=== PATIENT | female | born 1985 | race Caucasian/White ===

== ENCOUNTER 2017-08-30 11:35 | Inpatient (IN) | payer BC ==
[2017-08-30] MEDS ORDERED: Ondansetron 4 MG Tab.DIS PO PRN (12:12)
[2017-08-30] MEDS ORDERED: Sodium Chloride 0.9% 10 ML Syringe FLUSH PRN (12:12)
[2017-08-30] MEDS ORDERED: Nalbuphine 20 MG/1 ML Amp IVPUSH PRN (12:12)
[2017-08-30] MEDS ORDERED: Oxytocin/Lactated Ringers 10 UNIT/1,000 ML BAG IV SCH ×2 (12:15)
[2017-08-30] MEDS: Lactated Ringers 1,000 ML IV SCH ×3 (12:44→17:57)
--- NOTE | 2017-08-30 13:38 | PCM.LDHP ---
L&D History of Present Illness - General Date of Service: 08/30/17 Admit Problem/Dx: Patient Status Order with Admit Dx/Problem 08/30/17 12:12 Patient Status [ADT] Routine Admission Diagnosis/Problem Admission Diagnosis/Problem Source of Information: Patient History Limitations: Reports: No Limitations - History of Present Illness Introduction:: He 2-year-old (ETP x2) SALONI 08/30/17 at 40 weeks 0 days estimated gestational age complains of leaking fluid since 1900 hrs. last evening started having contractions approximate 4 AM this morning presented to labor and delivery at approximately noon cervix at that time 3 cm dilated 80% effaced now 4 cm dilated 80% effaced and amniotomy of for bag performed at 1330 hrs. clear fluid soft cervix vertex -1 and mid position patient and aware that Dr. Gustafson will take over called at 1700 hours. Group B strep negative patient lives an [place] blood type A positive antibody screen negative initial hemoglobin hematocrit on 01/28/1713.7 and 40.2 platelets 339,000 Pap smear negative rubella titer nonimmune (needs MMR after delivery) VDRL nonreactive urine culture mixed kwasi hepatitis B surface antigen and HIV negative Chlamydia and GC probe negative on 05/29/17 hemoglobin hematocrit 11.9/35.1 with platelets 279,001 hour OB glucose screen 142 3 hour glucose tolerance test fasting 86 1 hour 175 2 are 156 3 hour 68. Group B strep negative on 08/01/17. Plan labor and delivery. Location, : Reports: Abdomen, Lower back Quality: Reports: Ache, Dull, Pressure Severity: Mild (4) Pain Score: 4 Improves with: Reports: None Worsens with: Reports: None Associated Symptoms: Reports: N - Related Data Allergies/Adverse Reactions: Allergies Allergy/AdvReac Type Severity Reaction Status Date / Time No Known Allergies Allergy Verified 08/30/17 11:46 Past Medical History : 3 Para: 0 (0020) LMP (Approximate): H&P Review of Systems - Review of Systems: Review Of Systems: See Below General: Reports: No Symptoms HEENT: Reports: No Symptoms Pulmonary: Reports: No Symptoms Cardiovascular: Reports: No Symptoms Gastrointestinal: Reports: No Symptoms Genitourinary: Reports: No Symptoms Musculoskeletal: Reports: No Symptoms Skin: Reports: No Symptoms Psychiatric: Reports: No Symptoms Neurological: Reports: No Symptoms Hematologic/Lymphatic: Reports: No Symptoms Immunologic: Reports: No Symptoms L&D Exam - Exam Exam: See Below - Vital Signs Weight: 255 lb - OB Specific Fundal Height In cm: 40 Contraction Duration (sec): 60 Contraction Frequency (min): 3-5 Contraction Intensity: Mild to Moderate Movement: Active Heart Tones: Present Heart Tones per Min: 133 Heart Rate (FHR) Variability: Moderate (6-25 bmp) Presentation: Vertex - Potter Score Potter Score Cervix Position: Midposition Potter Score Consistency: Soft Potter Score Effacement: >80% Potter Score Dilation: 3-4 cm Potter Score Infant's Station: -1 ,0 Potter Score Total: 10 - Exam General: Alert, Oriented HEENT: Conjunctiva Clear, Mucosa Moist & [place], PERRLA Neck: Supple, Trachea Midline Lungs: Clear to Auscultation, Normal Respiratory Effort Cardiovascular: Regular Rate, Regular Rhythm GI/Abdominal Exam: Normal Bowel Sounds, Soft, Non-Tender, No Organomegaly, No Distention, No Abnormal Bruit, No Mass, Pelvis Stable Genitourinary: Normal external exam, Normal bimanual exam, Normal speculum exam Back Exam: Normal Inspection, Full Range of Motion Extremities: Normal Inspection, Normal Range of Motion, Non-Tender, No Pedal Edema, Normal Capillary Refill Skin: Warm, Dry, Intact Neurological: Reflexes Equal Bilateral Psychiatric: Alert, Normal Affect, Normal Mood - Patient Data Lab Results Last 24 hrs: Laboratory Results - last 24 hr 08/30/17 Range/Units 12:43 WBC 16.62 H (3.98-10.04) K/mm3 RBC 4.45 (3.98-5.22) M/mm3 Hgb 12.6 (11.2-15.7) gm/L Hct 37.6 (34.1-44.9) % MCV 84.5 (79.4-94.8) fl MCH 28.3 (25.6-32.2) pg MCHC 33.5 (32.2-35.5) g/dl RDW Std Deviation 40.4 (36.4-46.3) fL Plt Count 251 (182-369) K/mm3 MPV 9.7 (9.4-12.3) fl Neut % (Auto) 81.1 H (34.0-71.1) % Lymph % (Auto) 13.0 L (19.3-51.7) % [place] % (Auto) 5.0 (4.7-12.5) % Eos % (Auto) 0.4 L (0.7-5.8) Baso % (Auto) 0.1 (0.1-1.2) % Neut # (Auto) 13.48 H (1.56-6.13) K/mm3 Lymph # (Auto) 2.16 (1.18-3.74) K/mm3 [place] # (Auto) 0.83 H (0.24-0.36) K/mm3 Eos # (Auto) 0.06 (0.04-0.36) K/mm3 Baso # (Auto) 0.02 (0.01-0.08) K/mm3 Result Diagrams: 08/30/17 12:43 - Problem List (1) Premature rupture of membranes SNOMED Code(s): 46161618 ICD Code: O42.90 - KELLI ROM, 7TH0 BETW RUPT & ONST LABR, UNSP WEEKS OF GEST Status: Acute Current Visit: Yes Qualifiers: PROM onset of labor timing: onset of labor within 24 hours of rupture PROM gestational age: full term Qualified Code(s): O42.02 - Full-term premature rupture of membranes, onset of labor within 24 hours of rupture (2) 40 weeks gestation of SNOMED Code(s): 92656574 ICD Code: Z3A.40 - 40 WEEKS GESTATION OF Status: Acute Current Visit: Yes Problem List Initiated/Reviewed/Updated: No Orders Last 24hrs: Active Orders 24 hr Category Date Time Status Patient Status [ADT] Routine ADT 08/30/17 12:12 Active Activity as Tolerated [RC] PFP Care 08/30/17 12:12 Active Communication Order [RC] ASDIRECTED Care 08/30/17 12:12 Active Heart Tones [RC] ASDIRECTED Care 08/30/17 12:13 Active Notify Provider [RC] PFP Care 08/30/17 12:12 Active Notify Provider [RC] PRN Care 08/30/17 12:12 Active Peripheral IV Care [RC] . DIRECTED Care 08/30/17 12:13 Active Pump Management, Intrathecal [RC] ASDIRECTED Care 08/30/17 12:13 Active Vital Signs [RC] PER UNIT ROUTINE Care 08/30/17 12:12 Active Regular Diet [DIET] Diet 08/30/17 Lunch Active TYPE AND SCREEN [BBK] Stat Lab 08/30/17 12:43 Received Lactated Ringers [Ringers, Lactated] 1,000 ml Med 08/30/17 12:15 Active IV ASDIRECTED Nalbuphine [Nubain] Med 08/30/17 12:12 Active 10 mg IVPUSH Q2H PRN Ondansetron [Zofran ODT] Med 08/30/17 12:12 Active 4 mg PO Q4H PRN Oxytocin/Lactated Ringers [Pitocin in LR 10 Units/1,000 Med 08/30/17 12:15 Active ML] 10 unit in 1,000 ml IV .CONTINUOUS Oxytocin/Lactated Ringers [Pitocin in LR 10 Units/1,000 Med 08/30/17 12:15 Active ML] 10 unit in 1,000 ml IV TITRATE Sodium Chloride 0.9% [Saline Flush] Med 08/30/17 12:12 Active 10 ml FLUSH ASDIRECTED PRN Electronic Heart Tones Ext w TOCO [WOMSER] Oth 08/30/17 12:12 Ordered Routine Electronic Heart Tones Internal [WOMSER] Per Unit Oth 08/30/17 12:12 Ordered Routine Peripheral IV Insertion Adult [OM.PC] Routine Oth 08/30/17 12:12 Ordered Resuscitation Status Routine Resus Stat 08/30/17 12:12 Ordered Medication Orders Lactated Ringer's (Ringers, Lactated) 1,000 mls @ 100 mls/hr IV ASDIRECTED ALIRIO Last Admin: 08/30/17 12:44 Dose: 100 mls/hr Oxytocin/Lactated Ringer's (Pitocin In Lr 10 Units/1,000 Ml) 10 unit in 1,000 mls @ 12 mls/hr IV TITRATE ALIRIO; 2 MUNITS/MIN PRN Reason: Protocol Last Admin: 08/30/17 12:44 Dose: 2 munits/min, 12 mls/hr Oxytocin/Lactated Ringer's (Pitocin In Lr 10 Units/1,000 Ml) 10 unit in 1,000 mls @ 500 mls/hr IV .CONTINUOUS ALIRIO Nalbuphine HCl (Nubain) 10 mg IVPUSH Q2H PRN PRN Reason: Pain (moderate 4-6) Ondansetron HCl (Zofran Odt) 4 mg PO Q4H PRN PRN Reason: Nausea/Vomiting Sodium Chloride (Saline Flush) 10 ml FLUSH ASDIRECTED PRN PRN Reason: Keep Vein Open Assessment/Plan Comment:: Plan labor and delivery Dr. Gustafson assumes care at 1700 hrs. today.
[2017-08-30] MEDS ORDERED: fentaNYL 100 MCG/2 ML SDV EPIDUR PRN (15:56)
[2017-08-30] MEDS ORDERED: diphenhydrAMINE 50 MG/ML SDV IVPUSH PRN (15:56)
[2017-08-30] MEDS ORDERED: ePHEDrine 50 MG/ML SDV IVPUSH PRN (15:56)
[2017-08-30] MEDS ORDERED: fentaNYL 100 MCG/2 ML SDV ONE (16:05)
[2017-08-30] MEDS: Bupivacaine/fentaNYL/NS 100 ML Bag EPIDUR SCH ×2 (16:20→21:24)
--- NOTE | 2017-08-30 16:34 | PCM.PREANE ---
Preanesthetic Assessment - Anesthesia/Transfusion/Family Hx Anesthesia History: Prior Anesthesia Without Reaction Family History of Anesthesia Reaction: No Transfusion History: No Prior Transfusion(s) - Review of Systems General: No Symptoms Pulmonary: No Symptoms Cardiovascular: No Symptoms Gastrointestinal: No Symptoms Neurological: No Symptoms - Physical Assessment Pulse: 98 O2 Sat by Pulse Oximetry: 97 Respiratory Rate: 22 Blood Pressure: 126/54 Temperature: 36.3 C Height: 1.68 m Weight: 115.666 kg ASA Class: 2 Mental Status: Alert & Oriented x3 Airway Class: Mallampati = 1 Dentition: Reports: Normal Dentition Thyro-Mental Finger Breadths: 3 Mouth Opening Finger Breadths: 3 ROM/Head Extension: Full Lungs: Clear to Auscultation, Normal Respiratory Effort Cardiovascular: Regular Rate, Regular Rhythm - Lab Values: Laboratory Last Values WBC 16.62 K/mm3 (3.98-10.04) H 08/30/17 12:43 RBC 4.45 M/mm3 (3.98-5.22) 08/30/17 12:43 Hgb 12.6 gm/L (11.2-15.7) 08/30/17 12:43 Hct 37.6 % (34.1-44.9) 08/30/17 12:43 MCV 84.5 fl (79.4-94.8) 08/30/17 12:43 MCH 28.3 pg (25.6-32.2) 08/30/17 12:43 MCHC 33.5 g/dl (32.2-35.5) 08/30/17 12:43 RDW Std Deviation 40.4 fL (36.4-46.3) 08/30/17 12:43 Plt Count 251 K/mm3 (182-369) 08/30/17 12:43 MPV 9.7 fl (9.4-12.3) 08/30/17 12:43 Neut % (Auto) 81.1 % (34.0-71.1) H 08/30/17 12:43 Lymph % (Auto) 13.0 % (19.3-51.7) L 08/30/17 12:43 [place] % (Auto) 5.0 % (4.7-12.5) 08/30/17 12:43 Eos % (Auto) 0.4 (0.7-5.8) L 08/30/17 12:43 Baso % (Auto) 0.1 % (0.1-1.2) 08/30/17 12:43 Neut # (Auto) 13.48 K/mm3 (1.56-6.13) H 08/30/17 12:43 Lymph # (Auto) 2.16 K/mm3 (1.18-3.74) 08/30/17 12:43 [place] # (Auto) 0.83 K/mm3 (0.24-0.36) H 08/30/17 12:43 Eos # (Auto) 0.06 K/mm3 (0.04-0.36) 08/30/17 12:43 Baso # (Auto) 0.02 K/mm3 (0.01-0.08) 08/30/17 12:43 Blood Type A POSITIVE 08/30/17 12:43 Gel Antibody Screen Negative 08/30/17 12:43 - Allergies Allergies/Adverse Reactions: Allergies Allergy/AdvReac Type Severity Reaction Status Date / Time No Known Allergies Allergy Verified 08/30/17 11:46 - Acknowledgements Anesthesia Type Planned: Epidural Pt an Appropriate Candidate for the Planned Anesthesia: Yes Alternatives and Risks of Anesthesia Discussed w Pt/Guardian: Yes Pt/Guardian Understands and Agrees with Anesthesia Plan: Yes PreAnesthesia Questionnaire Gastrointestinal History: Reports: [employer] 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 - SUBSTANCE USE Smoking Status *Q: Former Smoker Tobacco Use Within Last Twelve Months: No Recreational Drug Use History: No - CURRENT (IN HOUSE) MEDS Current Meds: Current Medications Diphenhydramine HCl (Benadryl) 25 mg IVPUSH Q6H PRN PRN Reason: Itching Ephedrine Sulfate (Ephedrine Sulfate) 5 mg IVPUSH ASDIRECTED PRN PRN Reason: HYPOTENTSION Fentanyl (Sublimaze) 100 mcg EPIDUR Q3H PRN PRN Reason: PAIN Last Admin: 08/30/17 16:19 Dose: 100 mcg Fentanyl/Bupivacaine HCl (Fentanyl/Bupivacaine/Ns 2 Mcg-0.125% 100 Ml) 100 ml EPIDUR ASDIRECTED ALIRIO Last Admin: 08/30/17 16:20 Dose: 100 ml Lactated Ringer's (Ringers, Lactated) 1,000 mls @ 100 mls/hr IV ASDIRECTED ALIRIO Last Infusion: 08/30/17 15:23 Dose: 999 mls/hr Oxytocin/Lactated Ringer's (Pitocin In Lr 10 Units/1,000 Ml) 10 unit in 1,000 mls @ 12 mls/hr IV TITRATE ALIRIO; 2 MUNITS/MIN PRN Reason: Protocol Last Titration: 08/30/17 15:47 Dose: 4 munits/min, 24 mls/hr Oxytocin/Lactated Ringer's (Pitocin In Lr 10 Units/1,000 Ml) 10 unit in 1,000 mls @ 500 mls/hr IV .CONTINUOUS ALIRIO Nalbuphine HCl (Nubain) 10 mg IVPUSH Q2H PRN PRN Reason: Pain (moderate 4-6) Ondansetron HCl (Zofran Odt) 4 mg PO Q4H PRN PRN Reason: Nausea/Vomiting Sodium Chloride (Saline Flush) 10 ml FLUSH ASDIRECTED PRN PRN Reason: Keep Vein Open Discontinued Medications Fentanyl (Sublimaze) Confirm Administered Dose 100 mcg .ROUTE .[facility]-MED ONE Stop: 08/30/17 16:06
--- NOTE | 2017-08-30 19:31 | PCM.PNLD ---
Labor Progress Note - VS & Meds Vital Signs: Last Vital Signs Temp 36.3 C 08/30/17 16:34 Pulse 98 08/30/17 16:34 Resp 22 H 08/30/17 16:34 BP 126/54 L 08/30/17 16:34 Pulse Ox 97 08/30/17 16:34 Active Medications: Current Medications Diphenhydramine HCl (Benadryl) 25 mg IVPUSH Q6H PRN PRN Reason: Itching Ephedrine Sulfate (Ephedrine Sulfate) 5 mg IVPUSH ASDIRECTED PRN PRN Reason: HYPOTENTSION Fentanyl (Sublimaze) 100 mcg EPIDUR Q3H PRN PRN Reason: PAIN Last Admin: 08/30/17 16:19 Dose: 100 mcg Fentanyl/Bupivacaine HCl (Fentanyl/Bupivacaine/Ns 2 Mcg-0.125% 100 Ml) 100 ml EPIDUR ASDIRECTED ALIRIO Last Admin: 08/30/17 16:20 Dose: 100 ml Lactated Ringer's (Ringers, Lactated) 1,000 mls @ 100 mls/hr IV ASDIRECTED ALIRIO Last Admin: 08/30/17 17:57 Dose: 999 mls/hr Oxytocin/Lactated Ringer's (Pitocin In Lr 10 Units/1,000 Ml) 10 unit in 1,000 mls @ 12 mls/hr IV TITRATE ALIRIO; 2 MUNITS/MIN PRN Reason: Protocol Last Titration: 08/30/17 17:54 Dose: 8 munits/min, 48 mls/hr Oxytocin/Lactated Ringer's (Pitocin In Lr 10 Units/1,000 Ml) 10 unit in 1,000 mls @ 500 mls/hr IV .CONTINUOUS ALIRIO Nalbuphine HCl (Nubain) 10 mg IVPUSH Q2H PRN PRN Reason: Pain (moderate 4-6) Ondansetron HCl (Zofran Odt) 4 mg PO Q4H PRN PRN Reason: Nausea/Vomiting Sodium Chloride (Saline Flush) 10 ml FLUSH ASDIRECTED PRN PRN Reason: Keep Vein Open Discontinued Medications Fentanyl (Sublimaze) Confirm Administered Dose 100 mcg .ROUTE .STK-MED ONE Stop: 08/30/17 16:06 - Uterine Contractions Uterine Monitoring Mode: External [place] Contraction Frequency (min): 3-5 Contraction Duration (sec): 60 Contraction Intensity: Moderate to Strong - Monitoring Monitor Mode: External Ultrasound Heart Rate (FHR) Baseline: 140 Heart Rate (FHR) Variability: Moderate (6-25 bmp) Accelerations: Present, 15x15 Decelerations: Early, Late (rare) Strip Review: Category II - Vaginal Exam Dilation (cm): 9 Effacement (Percent): 80 Station: 1 Cervical Position: Anterior - Labor Progress (Free Text) Labor Progress: Doing well. On pitocin of 8. Will reassess in another 1-1.5 hours. Will begin pushing once complete.
--- NOTE | 2017-08-30 23:26 | PCM.SN ---
- Free Text/Narrative Note: In room at 2320 decrease epidural gtt from 10ml/hr to 7ml/hr VSS out room at 2328
--- NOTE | 2017-08-31 02:41 | PCM.DEL ---
L & D Note - Delivery Note Labor: Augmented by Oxytocin Delivery Outcome: Livebirth Delivery Method: Spontaneous Vaginal Delivery-Single Infant Delivery Mode: Vacuum Extraction Presentation: Right Occiput Posterior (ROP) Nuchal Cord: Present (x2), Reduced Anesthesia Type: Epidural Amniotic Fluid Description: Clear Episiotomy Type: None Laceration: None Placenta: Intact, Spontaneous Cord: 3 Vessels Estimated Blood Loss: 350 : Suctioned, Bulb Syringe, Cathether, Stimulated, Warmed, [place] Used, Warmer Used Score 1 min: 7 Score 5 min: 9 Delivery Comments (Free Text/Narrative):: The patient was pushing in the dorsal lithotomy position. After approximately 4 hours of pushing patient was exhausted and requested assisted second stage. scalp visible on the perineum even without pushing. The mushroom cup was placed without difficulty with care to avoid the vaginal side boggs. Subsequent vacuum assisted vaginal delivery with pushing. Total pressure applied 550 mm Hg. Total pop offs 0. Total time of vacuum applied less than 60 seconds and delivery occurred over 1 contraction. Suction was removed following delivery of the head. Head delivered from almost straight OP presentation. Nuchal cord x 2 was reduced without difficulty. The remainder of the infant delivered without difficulty. The umbilical cord was clamped and cut and the infant taken to warmer for inspection. Inspection of the perineum following delivery with no lacerations Vacuum Extractor Progress Note - Alternative Labor Strategies Considered Alternative Labor Strategies Considered:: Reports: Yes Strategies Considered:: Reports: Position Changes Used to Facilitate Rotation & Descent, Empty Bladder Indications Considered:: Reports: Yes Indications:: Reports: Shortening of 2nd Stage for Maternal Benefit Time Out:: Reports: Yes - Patient Prepared Patient Prepared:: Reports: Yes Informed Consent:: Reports: Verbal Risks: Reports: Yes Risks Include:: Reports: Laceration, Shoulder Dystocia, Maternal Injury Anesthesia/Analgesia Adequate:: Reports: Yes - Probability of Success High Probability of Success:: Reports: Yes Weight Estimated:: Reports: LGA Patient Diabetic:: Reports: No Pelvis Adequate:: Reports: Yes Asynclitic:: Reports: No - Application Time Maximum Application Time & Number of Pop-Offs Predetermined:: Reports: Yes Type of Vacuum Used:: Reports: Cup: Mushroom type Vacuum Extraction: Successful - Exit Strategy Exit strategy available:: Reports: Yes and resuscitation teams readily available:: Reports: Yes - Patient Data Vitals - Most Recent: Last Vital Signs Temp 36.3 C 08/30/17 16:34 Pulse 98 08/30/17 16:34 Resp 22 H 08/30/17 16:34 BP 126/54 L 08/30/17 16:34 Pulse Ox 97 08/30/17 16:34 Weight - Most Recent: 115.666 kg I&O - Last 24 Hours: Intake & Output 08/30/17 08/30/17 08/31/17 14:59 22:59 06:59 Intake Total 1999 Balance 1999 Lab Results Last 24 Hours: Laboratory Results - last 24 hr 08/30/17 08/30/17 Range/Units 12:43 12:43 WBC 16.62 H (3.98-10.04) K/mm3 RBC 4.45 (3.98-5.22) M/mm3 Hgb 12.6 (11.2-15.7) gm/L Hct 37.6 (34.1-44.9) % MCV 84.5 (79.4-94.8) fl MCH 28.3 (25.6-32.2) pg MCHC 33.5 (32.2-35.5) g/dl RDW Std Deviation 40.4 (36.4-46.3) fL Plt Count 251 (182-369) K/mm3 MPV 9.7 (9.4-12.3) fl Neut % (Auto) 81.1 H (34.0-71.1) % Lymph % (Auto) 13.0 L (19.3-51.7) % [place] % (Auto) 5.0 (4.7-12.5) % Eos % (Auto) 0.4 L (0.7-5.8) Baso % (Auto) 0.1 (0.1-1.2) % Neut # (Auto) 13.48 H (1.56-6.13) K/mm3 Lymph # (Auto) 2.16 (1.18-3.74) K/mm3 [place] # (Auto) 0.83 H (0.24-0.36) K/mm3 Eos # (Auto) 0.06 (0.04-0.36) K/mm3 Baso # (Auto) 0.02 (0.01-0.08) K/mm3 Blood Type A POSITIVE Gel Antibody Screen Negative Med Orders - Current: Current Medications Diphenhydramine HCl (Benadryl) 25 mg IVPUSH Q6H PRN PRN Reason: Itching Ephedrine Sulfate (Ephedrine Sulfate) 5 mg IVPUSH ASDIRECTED PRN PRN Reason: HYPOTENTSION Fentanyl (Sublimaze) 100 mcg EPIDUR Q3H PRN PRN Reason: PAIN Last Admin: 08/30/17 16:19 Dose: 100 mcg Fentanyl/Bupivacaine HCl (Fentanyl/Bupivacaine/Ns 2 Mcg-0.125% 100 Ml) 100 ml EPIDUR ASDIRECTED ALIRIO Last Admin: 08/30/17 21:24 Dose: 100 ml Lactated Ringer's (Ringers, Lactated) 1,000 mls @ 100 mls/hr IV ASDIRECTED ALIRIO Last Infusion: 08/30/17 19:30 Dose: Infused Oxytocin/Lactated Ringer's (Pitocin In Lr 10 Units/1,000 Ml) 10 unit in 1,000 mls @ 12 mls/hr IV TITRATE ALIRIO; 2 MUNITS/MIN PRN Reason: Protocol Last Titration: 08/30/17 23:41 Dose: 4 munits/min, 24 mls/hr Oxytocin/Lactated Ringer's (Pitocin In Lr 10 Units/1,000 Ml) 10 unit in 1,000 mls @ 500 mls/hr IV .CONTINUOUS ALIRIO Nalbuphine HCl (Nubain) 10 mg IVPUSH Q2H PRN PRN Reason: Pain (moderate 4-6) Ondansetron HCl (Zofran Odt) 4 mg PO Q4H PRN PRN Reason: Nausea/Vomiting Sodium Chloride (Saline Flush) 10 ml FLUSH ASDIRECTED PRN PRN Reason: Keep Vein Open Discontinued Medications Fentanyl (Sublimaze) Confirm Administered Dose 100 mcg .ROUTE .STK-MED ONE Stop: 08/30/17 16:06 - Problem List & Annotations (1) Status post vacuum-assisted vaginal delivery SNOMED Code(s): 443163610 Code(s): Z87.42 - PERSONAL HISTORY OF OTH DISEASES OF THE FEMALE GENITAL TRACT Status: Acute Current Visit: Yes (2) 40 weeks gestation of SNOMED Code(s): 60615928 Code(s): Z3A.40 - 40 WEEKS GESTATION OF Status: Acute Current Visit: Yes (3) Premature rupture of membranes SNOMED Code(s): 39567768 Code(s): O42.90 - KELLI ROM, 7TH0 BETW RUPT & ONST LABR, UNSP WEEKS OF GEST Status: Acute Current Visit: Yes Qualifiers: PROM onset of labor timing: onset of labor within 24 hours of rupture PROM gestational age: full term Qualified Code(s): O42.02 - Full-term premature rupture of membranes, onset of labor within 24 hours of rupture - Problem List Review Problem List Initiated/Reviewed/Updated: Yes - My Orders Last 24 Hours: My Active Orders 08/31/17 02:33 Patient Status Manage Transfer [TRANSFER] Routine - Assessment Assessment:: 32 y/o PPD#0 from [facility] at 40 1/7 wks - Plan Plan:: * Routine cares * Bottle feeding * Discharge home in 1-2 days
[2017-08-31] MEDS ORDERED: Lanolin 100% Cream 7 GM Tube TOP PRN (03:00)
[2017-08-31] MEDS ORDERED: Witch Hazel Medicated Pads 100/Jar TOP PRN (03:00)
[2017-08-31] MEDS ORDERED: Docusate Sodium 100 MG Cap PO PRN (03:00)
[2017-08-31] MEDS ORDERED: Acetaminophen 325 MG Tab PO PRN (03:00)
[2017-08-31] MEDS ORDERED: Benzocaine/Menthol 20%-0.5% Spray 56 GM Canister TOP PRN (03:00)
[2017-08-31] MEDS: Ibuprofen 600 MG Tab PO PRN ×2 (04:30→20:36)
[2017-08-31] MEDS ORDERED: Measles, Mumps & Rubella Vaccine 0.5 ML SDV SUBCUT ONE (22:14)
[2017-08-31] MEDS ORDERED: FLU Vacc TS 2017-18 (65yr UP)/PF 180 MCG/0.5 ML Syringe IM ONE (22:15)
[2017-08-31] MEDS ORDERED: Bupivacaine 0.25% 10 ML SDV ONE (22:22)
[2017-08-31] MEDS ORDERED: FLU Vacc QS 2017-18 (6mos UP)/PF 60 MCG/0.5 ML Syringe IM ONE (22:30)
--- NOTE | 2017-09-01 08:08 | PCM.DCSUM1 ---
Discharge Summary - Discharge Data Discharge Date: 09/01/17 Discharge Disposition: Home, Self-Care 01 Condition: Good - Discharge Diagnosis/Problem(s) (1) Status post vacuum-assisted vaginal delivery SNOMED Code(s): 091125420 ICD Code: Z87.42 - PERSONAL HISTORY OF OTH DISEASES OF THE FEMALE GENITAL TRACT Status: Acute Current Visit: Yes (2) 40 weeks gestation of SNOMED Code(s): 39980380 ICD Code: Z3A.40 - 40 WEEKS GESTATION OF Status: Acute Current Visit: Yes (3) Premature rupture of membranes SNOMED Code(s): 88702976 ICD Code: O42.90 - KELLI ROM, 7TH0 BETW RUPT & ONST LABR, UNSP WEEKS OF GEST Status: Acute Current Visit: Yes Qualifiers: PROM onset of labor timing: onset of labor within 24 hours of rupture PROM gestational age: full term Qualified Code(s): O42.02 - Full-term premature rupture of membranes, onset of labor within 24 hours of rupture - Patient Summary/Data Complications: None Consults: None Recommended Follow-up Testing/Procedures: Follow up with Dr. Drake in 2 weeks Hospital Course: 32 y/o at 40 0/7 wks presented with complaints of PROM. She was started on pitocin for augmenation and progressed well to complete dilation. She did begin pushing and pushed for about 4 hours before requesting VAVD due to exhaustion. See delivery note for full details. she did well and was discharged home on PPD#1 per her request - Patient Instructions Diet: Regular Diet as Tolerated Activity: As Tolerated Activity, Other: Pelvic Rest for 6 weeks Driving: May Drive Today Showering/Bathing: May Shower Showering/Bathing, Other: May Bathe Notify Provider of: Fever, Increased Pain, Swelling and Redness, Drainage, Nausea and/or Vomiting - Discharge Plan Home Medications: Home Meds Docusate Sodium [Colace] 100 mg PO BID PRN cap 08/31/17 [Rx] Ibuprofen [IJD: Ibuprofen] 600 mg PO Q6H PRN tablet 08/31/17 [Rx] Patient Handouts: Vaginal Delivery, Care After Referrals: Kilo Drake MD [Physician] - (2 weeks for check ) - Discharge Summary/Plan Comment DC Time >30 min.: No - Patient Data Vitals - Most Recent: Last Vital Signs Temp 36.2 C 09/01/17 04:31 Pulse 87 09/01/17 04:31 Resp 18 09/01/17 04:31 BP 130/84 09/01/17 04:31 Pulse Ox 98 09/01/17 04:31 Weight - Most Recent: 115.666 kg I&O - Last 24 hours: Intake & Output 08/31/17 09/01/17 09/01/17 22:59 06:59 14:59 Intake Total 300 Balance 300 Med Orders - Current: Current Medications Acetaminophen (Tylenol) 650 mg PO Q4H PRN PRN Reason: mild pain or fever Benzocaine/Menthol (Dermoplast Pain Relief [place]) 0 gm TOP ASDIRECTED PRN PRN Reason: Perineal Comfort Measure Docusate Sodium (Colace) 100 mg PO BID PRN PRN Reason: Constipation Emollient Ointment (Lansinoh Hpa) 0 gm TOP ASDIRECTED PRN PRN Reason: Sore Nipples Ibuprofen (Motrin) 600 mg PO Q6H PRN PRN Reason: Mild pain or fever Last Admin: 08/31/17 20:36 Dose: 600 mg Witch Jaylin (Tucks) 1 pad TOP ASDIRECTED PRN PRN Reason: Hemorrhoid pain Discontinued Medications Diphenhydramine HCl (Benadryl) 25 mg IVPUSH Q6H PRN PRN Reason: Itching Ephedrine Sulfate (Ephedrine Sulfate) 5 mg IVPUSH ASDIRECTED PRN PRN Reason: HYPOTENTSION Fentanyl (Sublimaze) 100 mcg EPIDUR Q3H PRN PRN Reason: PAIN Last Admin: 08/30/17 16:19 Dose: 100 mcg Fentanyl (Sublimaze) Confirm Administered Dose 100 mcg .ROUTE .STK-MED ONE Stop: 08/30/17 16:06 Fentanyl/Bupivacaine HCl (Fentanyl/Bupivacaine/Ns 2 Mcg-0.125% 100 Ml) 100 ml EPIDUR ASDIRECTED [facility] Last Admin: 08/30/17 21:24 Dose: 100 ml Lactated Ringer's (Ringers, Lactated) 1,000 mls @ 100 mls/hr IV ASDIRECTED [facility] Last Infusion: 08/30/17 19:30 Dose: Infused Oxytocin/Lactated Ringer's (Pitocin In Lr 10 Units/1,000 Ml) 10 unit in 1,000 mls @ 12 mls/hr IV TITRATE ALIRIO; 2 MUNITS/MIN PRN Reason: Protocol Last Titration: 08/31/17 02:14 Dose: 500 mls/hr Oxytocin/Lactated Ringer's (Pitocin In Lr 10 Units/1,000 Ml) 10 unit in 1,000 mls @ 500 mls/hr IV .CONTINUOUS ALIRIO Influenza Virus Vaccine (Flulaval Quad [id number]) 60 mcg IM .ONCE ONE Stop: 08/31/17 22:31 Last Admin: 08/31/17 22:56 Dose: 60 mcg Measles/Mumps/Rubella Vaccine Live (M-M-R Ii Vaccine) 0.5 ml SUBCUT .ONCE ONE Stop: 08/31/17 22:15 Last Admin: 08/31/17 22:28 Dose: 0.5 ml Nalbuphine HCl (Nubain) 10 mg IVPUSH Q2H PRN PRN Reason: Pain (moderate 4-6) Ondansetron HCl (Zofran Odt) 4 mg PO Q4H PRN PRN Reason: Nausea/Vomiting Sodium Chloride (Saline Flush) 10 ml FLUSH ASDIRECTED PRN PRN Reason: Keep Vein Open *Q Meaningful Use (DIS) - VTE *Q VTE Criteria *Q: - Stroke *Q Stroke Criteria *Q: - AMI *Q AMI Criteria *Q:
--- NOTE | 2017-09-01 08:08 | PCM.PNPP ---
- General Info Date of Service: 09/01/17 Functional Status: Reports: Pain Controlled, Tolerating Diet, Ambulating, Urinating - Review of Systems General: Reports: No Symptoms Pulmonary: Reports: No Symptoms Cardiovascular: Reports: No Symptoms Gastrointestinal: Reports: No Symptoms Genitourinary: Reports: No Symptoms Musculoskeletal: Reports: No Symptoms Neurological: Reports: No Symptoms - Patient Data Vital Signs - Most Recent: Last Vital Signs Temp 36.2 C 09/01/17 04:31 Pulse 87 09/01/17 04:31 Resp 18 09/01/17 04:31 BP 130/84 09/01/17 04:31 Pulse Ox 98 09/01/17 04:31 Weight - Most Recent: 115.666 kg I&O - Last 24 Hours: Intake & Output 08/31/17 09/01/17 09/01/17 22:59 06:59 14:59 Intake Total 300 Balance 300 Med Orders - Current: Current Medications Acetaminophen (Tylenol) 650 mg PO Q4H PRN PRN Reason: mild pain or fever Benzocaine/Menthol (Dermoplast Pain Relief [place]) 0 gm TOP ASDIRECTED PRN PRN Reason: Perineal Comfort Measure Docusate Sodium (Colace) 100 mg PO BID PRN PRN Reason: Constipation Emollient Ointment (Lansinoh Hpa) 0 gm TOP ASDIRECTED PRN PRN Reason: Sore Nipples Ibuprofen (Motrin) 600 mg PO Q6H PRN PRN Reason: Mild pain or fever Last Admin: 08/31/17 20:36 Dose: 600 mg Witch Jaylin (Tucks) 1 pad TOP ASDIRECTED PRN PRN Reason: Hemorrhoid pain Discontinued Medications Diphenhydramine HCl (Benadryl) 25 mg IVPUSH Q6H PRN PRN Reason: Itching Ephedrine Sulfate (Ephedrine Sulfate) 5 mg IVPUSH ASDIRECTED PRN PRN Reason: HYPOTENTSION Fentanyl (Sublimaze) 100 mcg EPIDUR Q3H PRN PRN Reason: PAIN Last Admin: 08/30/17 16:19 Dose: 100 mcg Fentanyl (Sublimaze) Confirm Administered Dose 100 mcg .ROUTE .STK-MED ONE Stop: 08/30/17 16:06 Fentanyl/Bupivacaine HCl (Fentanyl/Bupivacaine/Ns 2 Mcg-0.125% 100 Ml) 100 ml EPIDUR ASDIRECTED ALIRIO Last Admin: 08/30/17 21:24 Dose: 100 ml Lactated Ringer's (Ringers, Lactated) 1,000 mls @ 100 mls/hr IV ASDIRECTED ALIRIO Last Infusion: 08/30/17 19:30 Dose: Infused Oxytocin/Lactated Ringer's (Pitocin In Lr 10 Units/1,000 Ml) 10 unit in 1,000 mls @ 12 mls/hr IV TITRATE ALIRIO; 2 MUNITS/MIN PRN Reason: Protocol Last Titration: 08/31/17 02:14 Dose: 500 mls/hr Oxytocin/Lactated Ringer's (Pitocin In Lr 10 Units/1,000 Ml) 10 unit in 1,000 mls @ 500 mls/hr IV .CONTINUOUS ALIRIO Influenza Virus Vaccine (Flulaval Quad [id number]) 60 mcg IM .ONCE ONE Stop: 08/31/17 22:31 Last Admin: 08/31/17 22:56 Dose: 60 mcg Measles/Mumps/Rubella Vaccine Live (M-M-R Ii Vaccine) 0.5 ml SUBCUT .ONCE ONE Stop: 08/31/17 22:15 Last Admin: 08/31/17 22:28 Dose: 0.5 ml Nalbuphine HCl (Nubain) 10 mg IVPUSH Q2H PRN PRN Reason: Pain (moderate 4-6) Ondansetron HCl (Zofran Odt) 4 mg PO Q4H PRN PRN Reason: Nausea/Vomiting Sodium Chloride (Saline Flush) 10 ml FLUSH ASDIRECTED PRN PRN Reason: Keep Vein Open - Infant Interaction Disposition, : [place] in Room with Family Infant Interaction: Holding Infant Feeding: Bottle Fed Support Person: - Recovery Exam Fundal Tone: Firm Fundal Level: 1 Fingerbreadths Below Umbilicus Fundal Placement: Midline Lochia Amount: Small Lochia Color: Rubra/Red Perineum Description: Intact, Minimal Bruising/Swelling Bladder Status: Voiding Urinary Elimination: Voided - Exam General: Alert, Oriented, Cooperative GI/Abdominal Exam: Soft, Non-Tender Extremities: Normal Inspection Skin: Warm, Dry, Intact - Problem List & Annotations (1) Status post vacuum-assisted vaginal delivery SNOMED Code(s): 768752379 Code(s): Z87.42 - PERSONAL HISTORY OF OTH DISEASES OF THE FEMALE GENITAL TRACT Status: Acute Current Visit: Yes (2) 40 weeks gestation of SNOMED Code(s): 67998489 Code(s): Z3A.40 - 40 WEEKS GESTATION OF Status: Acute Current Visit: Yes (3) Premature rupture of membranes SNOMED Code(s): 03216963 Code(s): O42.90 - KELLI ROM, 7TH0 BETW RUPT & ONST LABR, UNSP WEEKS OF GEST Status: Acute Current Visit: Yes Qualifiers: PROM onset of labor timing: onset of labor within 24 hours of rupture PROM gestational age: full term Qualified Code(s): O42.02 - Full-term premature rupture of membranes, onset of labor within 24 hours of rupture - Problem List Review Problem List Initiated/Reviewed/Updated: Yes - My Orders Last 24 Hours: My Active Orders 09/01/17 03:00 Heat Therapy [OM.PC] PRN - Assessment Assessment:: 32 y/o PPD#1 from VAVD at 40 1/7 wks - Plan Plan:: * Routine cares * Bottle feeding * Discharge home today
== END 2017-09-01 13:45 | disposition home or self-care (01) | DRG 560 ==
LOC: JD.OBCHECK 11:35 → JD.OB 11:35 → JD.OBCHECK 12:12 → OBSVTOIN 08-31 02:39 → JD.OB 08-31 02:39
PROVIDERS: ADMIT Obstetrics & Gynecology; ATTEND Obstetrics & Gynecology
PROC: 10D07Z6 Extraction of Products of Conception, Vacuum, Via Natural or Artificial Opening (ICD-10-PCS; principal; 2017-08-31)
PROC: 00HU33Z Insertion of Infusion Device into Spinal Canal, Percutaneous Approach (ICD-10-PCS; 2017-08-31)
PROC: 3E0R3BZ Introduction of Anesthetic Agent into Spinal Canal, Percutaneous Approach (ICD-10-PCS; 2017-08-31)
DX: O42.02 Full-term premature rupture of membranes, onset of labor within 24 hours of rupture (principal); O69.81X0 Labor and delivery complicated by cord around neck, without compression, not applicable or unspecified; Z3A.40 40 weeks gestation of pregnancy; Z37.0 Single live birth
CPT/HCPCS: 36415; 51701; 51702; 59409; 85025; 86850; 86900; 86901; 90471; 90686; 90707; A9270-GY; J2590; J3010; J7120

== ENCOUNTER 2020-09-26 07:19 | Inpatient (IN) | payer BC ==
[2020-09-26] MEDS ORDERED: Ondansetron 4 MG/2 ML SDV IVPUSH PRN ×2 (07:20→09:32)
[2020-09-26] MEDS ORDERED: Nalbuphine 10 MG/1 ML Vial IVPUSH PRN (07:20)
[2020-09-26] MEDS ORDERED: Sodium Chloride 0.9% 10 ML Syringe FLUSH PRN (07:20)
--- NOTE | 2020-09-26 07:28 | PCM.LDHP ---
L&D History of Present Illness - General Date of Service: 09/26/20 Admit Problem/Dx: Patient Status Order with Admit Dx/Problem 09/26/20 07:21 Patient Status [ADT] Routine Admission Diagnosis/Problem Admission Diagnosis/Problem Normal labor Source of Information: Patient History Limitations: Reports: No Limitations - History of Present Illness Introduction:: Patient is a 35 y/o at 39 1/7 wks who presents for IOL. Doing well today. No other issues or concerns. 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 Social & Family History - Family History Family Medical History: No Pertinent Family History - Tobacco Use Tobacco Use Status *Q: Former Tobacco User - Caffeine Use Caffeine Use: Reports: Coffee, Soda - Alcohol Use Alcohol Use History: No - Recreational Drug Use Recreational Drug Use: No H&P Review of Systems - Review of Systems: Review Of Systems: See Below General: Reports: No Symptoms Pulmonary: Reports: No Symptoms Cardiovascular: Reports: No Symptoms Gastrointestinal: Reports: No Symptoms Genitourinary: Reports: No Symptoms Musculoskeletal: Reports: No Symptoms Psychiatric: Reports: No Symptoms Neurological: Reports: No Symptoms L&D Exam - Exam Exam: See Below - OB Specific Contraction Intensity: Irritability Movement: Active Heart Tones: Present Heart Tones per Min: 140 Heart Rate (FHR) Variability: Moderate (6-25 bmp) Presentation: Vertex - Potter Score Potter Score Cervix Position: Midposition Potter Score Consistency: Soft Potter Score Effacement: 51-70% Potter Score Dilation: 1-2 cm Potter Score 's Station: -3 Potter Score Total: 6 - Exam General: Alert, Oriented, Cooperative Lungs: Clear to Auscultation, Normal Respiratory Effort Cardiovascular: Regular Rate, Regular Rhythm GI/Abdominal Exam: Soft, Non-Tender Genitourinary: Normal external exam Back Exam: Normal Inspection Extremities: Normal Inspection Skin: Warm, Dry, Intact - Patient Data Result Diagrams: 09/26/20 07:40 - Problem List (1) 39 weeks gestation of SNOMED Code(s): 28186945 ICD Code: Z3A.39 - 39 WEEKS GESTATION OF Status: Acute Current Visit: Yes Problem List Initiated/Reviewed/Updated: Yes Orders Last 24hrs: Active Orders 24 hr Category Date Time Status Patient Status [ADT] Routine ADT 09/26/20 07:21 Ordered Activity as Tolerated [RC] PFP Care 09/26/20 07:21 Ordered Communication Order [RC] ASDIRECTED Care 09/26/20 07:21 Ordered Communication Order [RC] ASDIRECTED Care 09/26/20 07:21 Ordered Communication Order [RC] ASDIRECTED Care 09/26/20 07:21 Ordered Heart Tones [RC] ASDIRECTED Care 09/26/20 07:21 Ordered Non Stress Test [RC] PER UNIT ROUTINE Care 09/26/20 07:21 Ordered Notify Provider [RC] ASDIRECTED Care 09/26/20 07:21 Ordered Notify Provider [RC] PRN Care 09/26/20 07:21 Ordered Peripheral IV Care [RC] . DIRECTED Care 09/26/20 07:21 Ordered Up ad Vanessa [RC] ASDIRECTED Care 09/26/20 07:21 Ordered Vaginal Exam [RC] ASDIRECTED Care 09/26/20 07:21 Ordered Vital Signs [RC] ASDIRECTED Care 09/26/20 07:21 Ordered Regular Diet [DIET] Diet 09/26/20 Breakfast Ordered CBC W/O DIFF,HEMOGRAM [HEME] Routine Lab 09/26/20 07:20 Ordered CORONAVIRUS COVID-19 CHRISTINE [MOLEC] Stat Lab 09/26/20 07:23 Ordered RAPID PLASMA REAGIN,RPR [CHEM] Routine Lab 09/26/20 07:21 Ordered TYPE AND SCREEN [BBK] Routine Lab 09/26/20 07:20 Ordered Lactated Ringers [Ringers, Lactated] 1,000 ml Med 09/26/20 07:30 Ordered IV ASDIRECTED Nalbuphine [Nubain] Med 09/26/20 07:20 Ordered 10 mg IVPUSH Q2H PRN Ondansetron [Zofran] Med 09/26/20 07:20 Ordered 4 mg IVPUSH Q4H PRN Oxytocin/Lactated Ringers [Pitocin in LR 10 Units/1,000 Med 09/26/20 07:30 Ordered ML] 10 unit in 1,000 ml IV .CONTINUOUS Oxytocin/Lactated Ringers [Pitocin in LR 10 Units/1,000 Med 09/26/20 07:30 Ordered ML] 10 unit in 1,000 ml IV TITRATE Sodium Chloride 0.9% [Saline Flush] Med 09/26/20 07:20 Ordered 10 ml FLUSH ASDIRECTED PRN Electronic Heart Tones Ext w TOCO [WOMSER] Oth 09/26/20 07:21 Ordered Routine Electronic Heart Tones Internal [WOMSER] Per Unit Ot 09/26/20 07:21 Ordered Routine Peripheral IV Insertion Adult [OM.PC] Routine Oth 09/26/20 07:21 Ordered Resuscitation Status Routine Resus Stat 09/26/20 07:20 Ordered Assessment/Plan Comment:: * Labs to be done * GBS negative, no need for antibiotics * Pitocin and AROM for IOL * Pain management per patient preference * Anticipate
[2020-09-26] MEDS ORDERED: Oxytocin/Lactated Ringers 10 UNIT/1,000 ML BAG IV SCH ×2 (07:30)
[2020-09-26] MEDS: Lactated Ringers 1,000 ML IV SCH ×4 (08:47→14:58)
[2020-09-26] MEDS ORDERED: fentaNYL 100 MCG/2 ML SDV EPIDUR PRN (09:32)
[2020-09-26] MEDS ORDERED: ePHEDrine 50 MG/ML SDV IVPUSH PRN (09:32)
--- NOTE | 2020-09-26 09:36 | PCM.PREANE ---
Preanesthetic Assessment - Procedure Proposed Procedure: Epidural - Anesthesia/Transfusion/Family Hx Anesthesia History: Prior Anesthesia Without Reaction Family History of Anesthesia Reaction: No Transfusion History: No Prior Transfusion(s) Intubation History: Unknown - Review of Systems General: No Symptoms Pulmonary: No Symptoms (Former smoker: quit: 2013) Cardiovascular: No Symptoms, Palpitations Gastrointestinal: No Symptoms (GERD) Neurological: No Symptoms (History of breast cancer carrier: bilateral mastectomy noted) Other: Reports: Anxiety (panic disorder) - Physical Assessment NPO Status Date: 09/26/20 NPO Status Time: 09:30 Vital Signs: Last Vital Signs Temp 37.1 C 09/26/20 07:41 Pulse 85 09/26/20 07:41 Resp 16 09/26/20 07:41 BP 129/90 09/26/20 07:41 Pulse Ox 98 09/26/20 07:41 Height: 1.68 m Weight: 111.584 kg ASA Class: 2 Mental Status: Alert & Oriented x3 Airway Class: Mallampati = 2 Dentition: Reports: Normal Dentition (bottom permanent retainer), Caries Thyro-Mental Finger Breadths: 3 Mouth Opening Finger Breadths: 3 ROM/Head Extension: Full Lungs: Clear to Auscultation, Normal Respiratory Effort Cardiovascular: Regular Rate, Regular Rhythm, No Murmurs - Lab Values: Laboratory Last Values WBC 10.50 K/mm3 (3.98-10.04) H 09/26/20 07:40 RBC 4.51 M/mm3 (3.98-5.22) 09/26/20 07:40 Hgb 12.4 gm/dl (11.2-15.7) 09/26/20 07:40 Hct 37.5 % (34.1-44.9) 09/26/20 07:40 MCV 83.1 fl (79.4-94.8) 09/26/20 07:40 MCH 27.5 pg (25.6-32.2) 09/26/20 07:40 MCHC 33.1 g/dl (32.2-35.5) 09/26/20 07:40 RDW Std Deviation 41.1 fL (36.4-46.3) 09/26/20 07:40 Plt Count 294 K/mm3 (182-369) 09/26/20 07:40 MPV 10.0 fl (9.4-12.3) 09/26/20 07:40 SARS-CoV-2 RNA (CHRISTINE) Negative (NEGATIVE) 09/26/20 07:40 Blood Type A POSITIVE 09/26/20 07:40 Above labs reviewed and noted and within acceptable ranges to proceed with epidural if desired. 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 - SUBSTANCE USE Tobacco Use Status *Q: Former Tobacco User Tobacco Use Within Last Twelve Months: Cigarettes Recreational Drug Use History: No - HOME MEDS Home Medications: Home Meds Docusate Sodium [Colace] 100 mg PO BID PRN cap 08/31/17 [Rx] 95/Iron Fum/Folic/Dha [ + Dha Combo Pack] 1 each PO DAILY 09/26/20 [History] Sertraline [Zoloft] 100 mg PO BEDTIME 09/26/20 [History] - CURRENT (IN HOUSE) MEDS Current Meds: Current Medications Oxytocin/Lactated Ringer's (Pitocin In Lr 10 Units/1,000 Ml) 10 unit in 1,000 mls @ 12 mls/hr IV TITRATE ALIRIO; Protocol Last Admin: 09/26/20 08:46 Dose: 2 munits/min, 12 mls/hr Documented by: Oxytocin/Lactated Ringer's (Pitocin In Lr 10 Units/1,000 Ml) 10 unit in 1,000 mls @ 500 mls/hr IV .CONTINUOUS ALIRIO Lactated Ringer's (Ringers, Lactated) 1,000 mls @ 40 mls/hr IV ASDIRECTED ALIRIO Last Admin: 09/26/20 08:47 Dose: 40 mls/hr Documented by: Nalbuphine HCl (Nubain) 10 mg IVPUSH Q2H PRN PRN Reason: Pain Ondansetron HCl (Zofran) 4 mg IVPUSH Q4H PRN PRN Reason: Nausea/Vomiting Sodium Chloride (Saline Flush) 10 ml FLUSH ASDIRECTED PRN PRN Reason: Keep Vein Open
[2020-09-26] MEDS ORDERED: Bupivacaine/fentaNYL/NS 100 ML Bag EPIDUR SCH (09:45)
[2020-09-26] MEDS ORDERED: Bupivacaine 0.25% 10 ML SDV ONE (11:00)
--- NOTE | 2020-09-26 12:17 | PCM.PNLD ---
Labor Progress Note - VS & Meds Vital Signs: Last Vital Signs Temp 37.1 C 09/26/20 07:41 Pulse 85 09/26/20 07:41 Resp 16 09/26/20 07:41 BP 129/90 09/26/20 07:41 Pulse Ox 98 09/26/20 07:41 Active Medications: Current Medications Ephedrine Sulfate (Ephedrine Sulfate) 5 mg IVPUSH ASDIRECTED PRN PRN Reason: Hypotension Fentanyl (Sublimaze) 100 mcg EPIDUR Q3H PRN PRN Reason: Pain Fentanyl/Bupivacaine HCl (Fentanyl/Bupivacaine/Ns 2 Mcg-0.125% 100 Ml) 100 ml E PIDUR ASDIRECTED ALIRIO Oxytocin/Lactated Ringer's (Pitocin In Lr 10 Units/1,000 Ml) 10 unit in 1,000 mls @ 12 mls/hr IV TITRATE ALIRIO; Protocol Last Titration: 09/26/20 11:40 Dose: 6 munits/min, 36 mls/hr Documented by: Oxytocin/Lactated Ringer's (Pitocin In Lr 10 Units/1,000 Ml) 10 unit in 1,000 mls @ 500 mls/hr IV .CONTINUOUS ALIRIO Lactated Ringer's (Ringers, Lactated) 1,000 mls @ 40 mls/hr IV ASDIRECTED ALIRIO Last Admin: 09/26/20 08:47 Dose: 40 mls/hr Documented by: Nalbuphine HCl (Nubain) 10 mg IVPUSH Q2H PRN PRN Reason: Pain Ondansetron HCl (Zofran) 4 mg IVPUSH Q4H PRN PRN Reason: Nausea/Vomiting Ondansetron HCl (Zofran) 4 mg IVPUSH ONETIME PRN PRN Reason: Nausea/Vomiting Sodium Chloride (Saline Flush) 10 ml FLUSH ASDIRECTED PRN PRN Reason: Keep Vein Open Discontinued Medications Miscellaneous Medication (Phenylephrine 1 Mg/10 Ml-Ns) 0 mg IVPUSH ONETIME ONE Stop: 09/26/20 09:33 - Uterine Contractions Uterine Monitoring Mode: External Lismore Contraction Intensity: Mild to Moderate Uterine Resting Tone: Soft - Monitoring Monitor Mode: External Ultrasound Heart Rate (FHR) Baseline: 125 Heart Rate (FHR) Variability: Moderate (6-25 bmp) Accelerations: Present, 15x15 Decelerations: None Strip Review: Category I - Vaginal Exam Dilation (cm): 4 Effacement (Percent): 50 Station: -2 Cervical Position: Midposition - Labor Progress (Free Text) Labor Progress: Doing well. Pitocin at 6. AROM performed. Continue present management
--- NOTE | 2020-09-26 15:45 | PCM.DEL ---
L & D Note - General Info Date of Service: 09/26/20 - Delivery Note Labor: Induced by ARM, Induced by Oxytocin Delivery Outcome: Livebirth Infant Delivery Method: Spontaneous Vaginal Delivery-Single Infant Delivery Mode: Spontaneous Presentation: Left Occiput Anterior (MARVIN) Nuchal Cord: None Anesthesia Type: Epidural Amniotic Fluid Description: Clear Episiotomy Type: None Laceration: None Placenta: Intact, Spontaneous Cord: 3 Vessels Estimated Blood Loss: 350 Resuscitation Needed: Yes [place]: Bulb Syringe, Stimulated, Warmed, Temperance Used, Warmer Used Delivery Comments (Free Text/Narrative):: Patient found to be complete and began pushing. With maternal pushing effort head delivered from an MARVIN presentation. No nuchal cord present. With gentle downward traction the shoulders and body delivered. placed on maternal abdomen. Cord clamped and cut. Cord blood obtained. Placenta allowed time to separate and expelled intact. Inspection of the perineum showed no lacerations - General Info Date of Service: 09/26/20 - Patient Data Vitals - Most Recent: Last Vital Signs Temp 37.1 C 09/26/20 07:41 Pulse 85 09/26/20 07:41 Resp 16 09/26/20 07:41 BP 129/90 09/26/20 07:41 Pulse Ox 98 09/26/20 07:41 Weight - Most Recent: 111.584 kg - Problem List & Annotations (1) 39 weeks gestation of SNOMED Code(s): 28595488 Code(s): Z3A.39 - 39 WEEKS GESTATION OF Status: Acute Current Visit: Yes (2) Vaginal delivery SNOMED Code(s): 318196800 Code(s): O80 - ENCOUNTER FOR FULL-TERM UNCOMPLICATED DELIVERY Status: Acute Current Visit: Yes - Problem List Review Problem List Initiated/Reviewed/Updated: Yes - My Orders Last 24 Hours: My Active Orders 09/26/20 Breakfast Regular Diet [DIET] 09/26/20 07:20 Nalbuphine [Nubain] 10 mg IVPUSH Q2H PRN Ondansetron [Zofran] 4 mg IVPUSH Q4H PRN Sodium Chloride 0.9% [Saline Flush] 10 ml FLUSH ASDIRECTED PRN Resuscitation Status Routine 09/26/20 07:21 Patient Status [ADT] Routine Activity as Tolerated [RC] PFP Communication Order [RC] ASDIRECTED Communication Order [RC] ASDIRECTED Communication Order [RC] ASDIRECTED Heart Tones [RC] ASDIRECTED Non Stress Test [RC] PER UNIT ROUTINE Notify Provider [RC] ASDIRECTED Notify Provider [RC] PRN Peripheral IV Care [RC] . DIRECTED Up ad Vanessa [RC] ASDIRECTED Vaginal Exam [RC] ASDIRECTED Vital Signs [RC] ASDIRECTED Electronic Heart Tones Ext w TOCO [WOMSER] Routine Electronic Heart Tones Internal [WOMSER] Per Unit Routine Peripheral IV Insertion Adult [OM.PC] Routine 09/26/20 07:30 Lactated Ringers [Ringers, Lactated] 1,000 ml IV ASDIRECTED Oxytocin/Lactated Ringers [Pitocin in LR 10 Units/1,000 ML] 10 unit in 1,000 ml IV .CONTINUOUS Oxytocin/Lactated Ringers [Pitocin in LR 10 Units/1,000 ML] 10 unit in 1,000 ml IV TITRATE 09/26/20 07:40 RAPID PLASMA REAGIN,RPR [CHEM] Routine - Assessment Assessment:: PPD#0 - Plan Plan:: * Routine cares * Breast feeding * Discharge home in 1-2 days
[2020-09-26] MEDS ORDERED: Docusate Sodium 100 MG Cap PO PRN (16:35)
[2020-09-26] MEDS ORDERED: Benzocaine/Menthol 20%-0.5% Spray 56 GM Canister TOP PRN (16:35)
[2020-09-26] MEDS ORDERED: Witch Hazel Medicated Pads 40/Jar TOP PRN (16:35)
[2020-09-26] MEDS ORDERED: Acetaminophen 325 MG Tab PO PRN (16:35)
[2020-09-26] MEDS: Ibuprofen 600 MG Tab PO PRN (17:54)
--- NOTE | 2020-09-27 07:37 | PCM.PNPP ---
- General Info Date of Service: 09/27/20 Functional Status: Reports: Pain Controlled, Tolerating Diet, Ambulating, Urinating - Review of Systems General: Reports: No Symptoms Pulmonary: Reports: No Symptoms Cardiovascular: Reports: No Symptoms Gastrointestinal: Reports: No Symptoms Genitourinary: Reports: No Symptoms Musculoskeletal: Reports: No Symptoms Neurological: Reports: No Symptoms - Patient Data Vital Signs - Most Recent: Last Vital Signs Temp 36.6 C 09/27/20 03:22 Pulse 77 09/27/20 03:22 Resp 16 09/26/20 20:29 BP 123/88 09/27/20 03:22 Pulse Ox 98 09/27/20 03:22 Weight - Most Recent: 111.584 kg Lab Results - Last 24 Hours: Laboratory Results - last 24 hr 09/26/20 09/26/20 09/26/20 Range/Units 07:40 07:40 07:40 WBC 10.50 H (3.98-10.04) K/mm3 RBC 4.51 (3.98-5.22) M/mm3 Hgb 12.4 (11.2-15.7) gm/dl Hct 37.5 (34.1-44.9) % MCV 83.1 (79.4-94.8) fl MCH 27.5 (25.6-32.2) pg MCHC 33.1 (32.2-35.5) g/dl RDW Std Deviation 41.1 (36.4-46.3) fL Plt Count 294 (182-369) K/mm3 MPV 10.0 (9.4-12.3) fl RPR Non-reactive (NONREACTIVE) SARS-CoV-2 RNA (CHRISTINE) (NEGATIVE) Blood Type A POSITIVE Gel Antibody Screen Negative 09/26/20 Range/Units 07:40 WBC (3.98-10.04) K/mm3 RBC (3.98-5.22) M/mm3 Hgb (11.2-15.7) gm/dl Hct (34.1-44.9) % MCV (79.4-94.8) fl MCH (25.6-32.2) pg MCHC (32.2-35.5) g/dl RDW Std Deviation (36.4-46.3) fL Plt Count (182-369) K/mm3 MPV (9.4-12.3) fl RPR (NONREACTIVE) SARS-CoV-2 RNA (CHRISTINE) Negative (NEGATIVE) Blood Type Gel Antibody Screen Med Orders - Current: Current Medications Acetaminophen (Tylenol) 650 mg PO Q4H PRN PRN Reason: mild pain or fever Benzocaine/Menthol (Dermoplast Pain Relief [place]) 0 gm TOP ASDIRECTED PRN PRN Reason: Perineal Comfort Measure Last Admin: 09/26/20 17:55 Dose: 1 applic Documented by: Docusate Sodium (Colace) 100 mg PO BID PRN PRN Reason: Constipation Last Admin: 09/26/20 17:54 Dose: 100 mg Documented by: Ibuprofen (Motrin) 600 mg PO Q6H PRN PRN Reason: Mild pain or fever Last Admin: 09/26/20 17:54 Dose: 600 mg Documented by: Heidy Mosqueda (Terackjames) 1 pad TOP ASDIRECTED PRN PRN Reason: Perineal Comfort Measure Last Admin: 09/26/20 17:55 Dose: 1 applic Documented by: Discontinued Medications Ephedrine Sulfate (Ephedrine Sulfate) 5 mg IVPUSH ASDIRECTED PRN PRN Reason: Hypotension Fentanyl (Sublimaze) 100 mcg EPIDUR Q3H PRN PRN Reason: Pain Last Admin: 09/26/20 12:36 Dose: 100 mcg Documented by: Fentanyl/Bupivacaine HCl (Fentanyl/Bupivacaine/Ns 2 Mcg-0.125% 100 Ml) 100 ml EPIDUR ASDIRECTED ALIRIO Last Admin: 09/26/20 12:37 Dose: 100 ml Documented by: Oxytocin/Lactated Ringer's (Pitocin In Lr 10 Units/1,000 Ml) 10 unit in 1,000 mls @ 12 mls/hr IV TITRATE ALIRIO; Protocol Last Titration: 09/26/20 13:00 Dose: 0 munits/min, 0 mls/hr Documented by: Oxytocin/Lactated Ringer's (Pitocin In Lr 10 Units/1,000 Ml) 10 unit in 1,000 mls @ 500 mls/hr IV .CONTINUOUS ALIRIO Lactated Ringer's (Ringers, Lactated) 1,000 mls @ 40 mls/hr IV ASDIRECTED ALIRIO Last Admin: 09/26/20 14:58 Dose: 40 mls/hr Documented by: Miscellaneous Medication (Phenylephrine 1 Mg/10 Ml-Ns) 0 mg IVPUSH ONETIME ONE Stop: 09/26/20 09:33 Last Admin: 09/26/20 23:56 Dose: Not Given Documented by: Nalbuphine HCl (Nubain) 10 mg IVPUSH Q2H PRN PRN Reason: Pain Ondansetron HCl (Zofran) 4 mg IVPUSH Q4H PRN PRN Reason: Nausea/Vomiting Ondansetron HCl (Zofran) 4 mg IVPUSH ONETIME PRN PRN Reason: Nausea/Vomiting Sodium Chloride (Saline Flush) 10 ml FLUSH ASDIRECTED PRN PRN Reason: Keep Vein Open - Interaction Disposition, : [place] in Room with Family Interaction: Holding Infant Feeding: Bottle Fed Infant Support Person: - Recovery Exam Fundal Tone: Firm Fundal Level: 1 Fingerbreadths Below Umbilicus Fundal Placement: Midline Lochia Amount: Small Lochia Color: Rubra/Red Perineum Description: Intact, Minimal Bruising/Swelling Episiotomy/Laceration: None Bladder Status: Voiding Urinary Elimination: Voided - Exam General: Alert, Oriented, Cooperative GI/Abdominal Exam: Soft, Non-Tender Extremities: Normal Inspection Skin: Warm, Dry, Intact - Problem List & Annotations (1) 39 weeks gestation of SNOMED Code(s): 79511912 Code(s): Z3A.39 - 39 WEEKS GESTATION OF Status: Acute Current Visit: Yes (2) Vaginal delivery SNOMED Code(s): 975236758 Code(s): O80 - ENCOUNTER FOR FULL-TERM UNCOMPLICATED DELIVERY Status: Acute Current Visit: Yes - Problem List Review Problem List Initiated/Reviewed/Updated: Yes - My Orders Last 24 Hours: My Active Orders 09/26/20 07:20 Resuscitation Status Routine 09/26/20 16:35 Acetaminophen [TylenoL] 650 mg PO Q4H PRN Benzocaine/Menthol [Dermoplast Pain Relief [place]] See Dose Instructions TOP ASDIRECTED PRN Docusate Sodium [Colace] 100 mg PO BID PRN Ibuprofen [Motrin] 600 mg PO Q6H PRN witch Michael [Tucks] 1 pad TOP ASDIRECTED PRN Heat Therapy [OM.PC] PRN 09/26/20 16:35 Activity as Tolerated [RC] PER UNIT ROUTINE Vital Signs [RC] 03,,, Assess Lochia [WOMSER] Per Unit Routine Assess Uterine Involution [WOMSER] Per Unit Routine Breast Pump [WOMSER] Per Unit Routine Ice Therapy [OM.PC] Per Unit Routine Medication Administration Instruction [OM.PC] Routine Perineal Care [OM.PC] Per Unit Routine Peripheral IV Discontinue [OM.PC] Routine Sitz Bath [OM.PC] Per Unit Routine 09/26/20 Dinner Regular Diet [DIET] 09/27/20 16:35 Heat Therapy [OM.PC] PRN - Assessment Assessment:: PPD#1 - Plan Plan:: * Routine cares * Breast feeding * Discharge home today vs tomorrow depending upon Pediatric preference
--- NOTE | 2020-09-27 07:37 | PCM48HPAN ---
Post Anesthesia Note - EVALUATION WITHIN 48HRS OF ANESTHETIC Vital Signs in Normal Range: Yes Patient Participated in Evaluation: Yes Respiratory Function Stable: Yes Airway Patent: Yes Cardiovascular Function Stable: Yes Hydration Status Stable: Yes Pain Control Satisfactory: Yes Nausea and Vomiting Control Satisfactory: Yes Mental Status Recovered: Yes Vital Signs: Last Vital Signs Temp 36.6 C 09/27/20 03:22 Pulse 77 09/27/20 03:22 Resp 16 09/26/20 20:29 BP 123/88 09/27/20 03:22 Pulse Ox 98 09/27/20 03:22
--- NOTE | 2020-09-27 07:37 | PCM.DCSUM1 ---
Discharge Summary - Discharge Data Discharge Date: 09/27/20 Discharge Disposition: Home, Self-Care 01 Condition: Good - Referral to Home Health Primary Care Physician: Darleen Atkins NP - Discharge Diagnosis/Problem(s) (1) 39 weeks gestation of SNOMED Code(s): 64161825 ICD Code: Z3A.39 - 39 WEEKS GESTATION OF Status: Acute (2) Vaginal delivery SNOMED Code(s): 135094959 ICD Code: O80 - ENCOUNTER FOR FULL-TERM UNCOMPLICATED DELIVERY Status: Acute - Patient Summary/Data Complications: None Consults: None Recommended Follow-up Testing/Procedures: Follow up in 3 weeks for check - can be telehealth Hospital Course: 35 y/o at 39 1/7 wks who presents for IOL. Induction done with pitocin and AROM . Progressed well to complete dilation and underwent an uncomplicated . See delivery note. did well and was discharged home on PPD#1 - Patient Instructions Diet: Regular Diet as Tolerated Activity: As Tolerated Activity, Other: Pelvic rest for 6 weeks Driving: May Drive Today Showering/Bathing: May Shower Showering/Bathing, Other: May Bathe Notify Provider of: Fever, Increased Pain, Swelling and Redness, Drainage, Nausea and/or Vomiting - Discharge Plan *PRESCRIPTION DRUG MONITORING PROGRAM REVIEWED*: No *COPY OF PRESCRIPTION DRUG MONITORING REPORT IN PATIENT ALE: No Home Medications: Home Meds Docusate Sodium [Colace] 100 mg PO BID PRN cap 08/31/17 [Rx] 95/Iron Fum/Folic/Dha [ + Dha Combo Pack] 1 each PO DAILY 09/26/20 [History] Sertraline [Zoloft] 100 mg PO BEDTIME 09/26/20 [History] Patient Handouts: Care After Vaginal Delivery Referrals: Sonam Gustafson MD [Physician] - (3 weeks for check - can be telehealth ) - Discharge Summary/Plan Comment DC Time >30 min.: No - Patient Data Vitals - Most Recent: Last Vital Signs Temp 36.6 C 09/27/20 03:22 Pulse 77 09/27/20 03:22 Resp 16 09/26/20 20:29 BP 123/88 09/27/20 03:22 Pulse Ox 98 09/27/20 03:22 Weight - Most Recent: 111.584 kg Lab Results - Last 24 hrs: Laboratory Results - last 24 hr 09/26/20 09/26/20 09/26/20 Range/Units 07:40 07:40 07:40 WBC 10.50 H (3.98-10.04) K/mm3 RBC 4.51 (3.98-5.22) M/mm3 Hgb 12.4 (11.2-15.7) gm/dl Hct 37.5 (34.1-44.9) % MCV 83.1 (79.4-94.8) fl MCH 27.5 (25.6-32.2) pg MCHC 33.1 (32.2-35.5) g/dl RDW Std Deviation 41.1 (36.4-46.3) fL Plt Count 294 (182-369) K/mm3 MPV 10.0 (9.4-12.3) fl RPR Non-reactive (NONREACTIVE) SARS-CoV-2 RNA (CHRISTINE) (NEGATIVE) Blood Type A POSITIVE Gel Antibody Screen Negative 09/26/20 Range/Units 07:40 WBC (3.98-10.04) K/mm3 RBC (3.98-5.22) M/mm3 Hgb (11.2-15.7) gm/dl Hct (34.1-44.9) % MCV (79.4-94.8) fl MCH (25.6-32.2) pg MCHC (32.2-35.5) g/dl RDW Std Deviation (36.4-46.3) fL Plt Count (182-369) K/mm3 MPV (9.4-12.3) fl RPR (NONREACTIVE) SARS-CoV-2 RNA (CHRISTINE) Negative (NEGATIVE) Blood Type Gel Antibody Screen Med Orders - Current: Current Medications Acetaminophen (Tylenol) 650 mg PO Q4H PRN PRN Reason: mild pain or fever Benzocaine/Menthol (Dermoplast Pain Relief [place]) 0 gm TOP ASDIRECTED PRN PRN Reason: Perineal Comfort Measure Last Admin: 09/26/20 17:55 Dose: 1 applic Documented by: Docusate Sodium (Colace) 100 mg PO BID PRN PRN Reason: Constipation Last Admin: 09/26/20 17:54 Dose: 100 mg Documented by: Ibuprofen (Motrin) 600 mg PO Q6H PRN PRN Reason: Mild pain or fever Last Admin: 09/26/20 17:54 Dose: 600 mg Documented by: Heidy Croft) 1 pad TOP ASDIRECTED PRN PRN Reason: Perineal Comfort Measure Last Admin: 09/26/20 17:55 Dose: 1 applic Documented by: Discontinued Medications Ephedrine Sulfate (Ephedrine Sulfate) 5 mg IVPUSH ASDIRECTED PRN PRN Reason: Hypotension Fentanyl (Sublimaze) 100 mcg EPIDUR Q3H PRN PRN Reason: Pain Last Admin: 09/26/20 12:36 Dose: 100 mcg Documented by: Fentanyl/Bupivacaine HCl (Fentanyl/Bupivacaine/Ns 2 Mcg-0.125% 100 Ml) 100 ml EPIDUR ASDIRECTED ALIRIO Last Admin: 09/26/20 12:37 Dose: 100 ml Documented by: Oxytocin/Lactated Ringer's (Pitocin In Lr 10 Units/1,000 Ml) 10 unit in 1,000 mls @ 12 mls/hr IV TITRATE ALIRIO; Protocol Last Titration: 09/26/20 13:00 Dose: 0 munits/min, 0 mls/hr Documented by: Oxytocin/Lactated Ringer's (Pitocin In Lr 10 Units/1,000 Ml) 10 unit in 1,000 mls @ 500 mls/hr IV .CONTINUOUS ALIRIO Lactated Ringer's (Ringers, Lactated) 1,000 mls @ 40 mls/hr IV ASDIRECTED ALIRIO Last Admin: 09/26/20 14:58 Dose: 40 mls/hr Documented by: Miscellaneous Medication (Phenylephrine 1 Mg/10 Ml-Ns) 0 mg IVPUSH ONETIME ONE Stop: 09/26/20 09:33 Last Admin: 09/26/20 23:56 Dose: Not Given Documented by: Nalbuphine HCl (Nubain) 10 mg IVPUSH Q2H PRN PRN Reason: Pain Ondansetron HCl (Zofran) 4 mg IVPUSH Q4H PRN PRN Reason: Nausea/Vomiting Ondansetron HCl (Zofran) 4 mg IVPUSH ONETIME PRN PRN Reason: Nausea/Vomiting Sodium Chloride (Saline Flush) 10 ml FLUSH ASDIRECTED PRN PRN Reason: Keep Vein Open
[2020-09-27] MEDS: Ibuprofen 600 MG Tab PO PRN (09:07)
== END 2020-09-27 16:45 | disposition home or self-care (01) | DRG 560 ==
LOC: JD.OB 07:19 → OBSVTOIN 15:36 → JD.OB 15:37 → INTOOBSV 15:45 → OBSVTOIN 15:45 → JD.OB 15:46
PROVIDERS: ADMIT Obstetrics & Gynecology; ATTEND Obstetrics & Gynecology
PROC: 10E0XZZ Delivery of Products of Conception, External Approach (ICD-10-PCS; principal; 2020-09-26)
PROC: 10907ZC Drainage of Amniotic Fluid, Therapeutic from Products of Conception, Via Natural or Artificial Opening (ICD-10-PCS; 2020-09-26)
PROC: 3E033VJ Introduction of Other Hormone into Peripheral Vein, Percutaneous Approach (ICD-10-PCS; 2020-09-26)
PROC: 3E0R3BZ Introduction of Anesthetic Agent into Spinal Canal, Percutaneous Approach (ICD-10-PCS; 2020-09-26)
DX: O80 Encounter for full-term uncomplicated delivery (principal); Z3A.39 39 weeks gestation of pregnancy; Z37.0 Single live birth; Z20.822 Contact with and (suspected) exposure to COVID-19
CPT/HCPCS: 01967; 36415; 51702; 59025; 59409; 85027; 86592; 86850; 86900; 86901; A9270-GY; J2590; J3010; J3490; J7120; U0002

== ENCOUNTER 2021-06-07 06:59 | Day surgery (SDC) | payer BC ==
[2021-06-07] MEDS ORDERED: Lactated Ringers 1,000 ML IV SCH (07:00)
[2021-06-07] MEDS ORDERED: Lidocaine 1%/Sod Bicarbonate in NS 8.4% 1 ML Syringe IDERM PRN (07:00)
[2021-06-07] MEDS ORDERED: Sodium Chloride 0.9% 10 ML Syringe FLUSH PRN (07:00)
--- NOTE | 2021-06-07 07:14 | PCM.PREANE ---
Preanesthetic Assessment - Procedure Proposed Procedure: Laparoscopic Assisted Vaginal hysterectomy with BSO - Anesthesia/Transfusion/Family Hx Anesthesia History: Prior Anesthesia Without Reaction Family History of Anesthesia Reaction: No Transfusion History: No Prior Transfusion(s) Intubation History: Unknown - Review of Systems General: No Symptoms Pulmonary: No Symptoms (Former smoker: quit in 2013) Cardiovascular: Palpitations (with panic attacks) Gastrointestinal: No Symptoms Neurological: No Symptoms Other: Reports: None (Bilateral Mastectomy with known BRCA1 carrier), Easy Bruising, Anxiety (with panic disorder) - Physical Assessment NPO Status Date: 06/06/21 NPO Status Time: 18:00 Vital Signs: HR: 89 Sat: 95% Temp: 97 B/P: 123/83 Resp: 16 Height: 1.68 m Weight: 107 kg ASA Class: 3 Mental Status: Alert & Oriented x3 Airway Class: Mallampati = 2 Dentition: Reports: Normal Dentition (permanent bottom retainier), Caries Thyro-Mental Finger Breadths: 3 Mouth Opening Finger Breadths: 3 ROM/Head Extension: Full Lungs: Clear to Auscultation, Normal Respiratory Effort Cardiovascular: Regular Rate, Regular Rhythm, No Murmurs - Lab Values: All labs reviewed and noted and within acceptable ranges to proceed with sched uled procedure. - Allergies Allergies/Adverse Reactions: Allergies Allergy/AdvReac Type Severity Reaction Status Date / Time clindamycin Allergy Hives Verified 06/06/21 13:15 - Anesthesia Plan Pre-Op Medication Ordered: None - Acknowledgements Anesthesia Type Planned: General Anesthesia Pt an Appropriate Candidate for the Planned Anesthesia: Yes Alternatives and Risks of Anesthesia Discussed w Pt/Guardian: Yes Pt/Guardian Understands and Agrees with Anesthesia Plan: Yes PreAnesthesia Questionnaire HEENT History: Reports: None Cardiovascular History: Reports: None Respiratory History: Reports: None Gastrointestinal History: Reports: GERD Genitourinary History: Reports: None 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: Reports: Musculoskeletal History: Reports: None Neurological History: Reports: None Psychiatric History: Reports: Anxiety Endocrine/Metabolic History: Reports: None Hematologic History: Reports: None Immunologic History: Reports: None Oncologic (Cancer) History: Reports: Other (See Below) Other Oncologic History: carries BRCA 1 Gene, double mastectomy in 2011 Dermatologic History: Reports: None - Infectious Disease History Infectious Disease History: Reports: None - Past Surgical History Head Surgeries/Procedures: Reports: None HEENT Surgical History: Reports: Oral Surgery Cardiovascular Surgical History: Reports: None Respiratory Surgical History: Reports: None GI Surgical History: Reports: None Female Surgical History: Reports: Other (See Below) Other Female Surgeries/Procedures: bilateral mastectomy in 2012 for carrying BRCA 1 gene. Endocrine Surgical History: Reports: None Neurological Surgical History: Reports: None Oncologic Surgical History: Reports: Mastectomy Dermatological Surgical History: Reports: None - SUBSTANCE USE Tobacco Use Status *Q: Former Tobacco User Recreational Drug Use History: No - HOME MEDS Home Medications: Home Meds 95/Iron Fum/Folic/Dha [ + Dha Combo Pack] 1 each PO DAILY 09/26/20 [History] Sertraline [Zoloft] 100 mg PO BEDTIME 09/26/20 [History] - CURRENT (IN HOUSE) MEDS Current Meds: Current Medications Lactated Ringer's (Ringers, Lactated) 1,000 mls @ 125 mls/hr IV ASDIRECTED ALIRIO Stop: 06/07/21 16:00 Lidocaine/Sodium Bicarbonate (Lidocaine 1%/Sod Bicarbonate In Ns 8.4% 1 Ml Syringe) 0.25 ml IDERM ONETIME PRN PRN Reason: Prior to IV Start Stop: 06/07/21 18:00 Sodium Chloride (Sodium Chloride 0.9% 10 Ml Syringe) 10 ml FLUSH ASDIRECTED PRN PRN Reason: Keep Vein Open Stop: 06/07/21 16:00
[2021-06-07] MEDS ORDERED: Lidocaine 1% with EPINEPHrine 1:100,000 10 ML MDV ONE (07:23)
--- NOTE | 2021-06-07 07:23 | PCM.OPNOTE ---
- General Post-Op/Procedure Note Date of Surgery/Procedure: 06/07/21 Operative Procedure(s): Laparoscopic assisted vaginal hysterectomy and bilateral salpingoophorectomy Findings: Normal appearance of the uterus, fallopian tubes, and ovaries bilaterally Pre Op Diagnosis: BRCA1 carrier Post-Op Diagnosis: Same Anesthesia Technique: General ET Tube Primary Surgeon: Sonam Gustafson Secondary Surgeon: Najma Cota Anesthesia Provider: Celena Gaspar Reason Commodity Management Specialist Was Necessary: Speed, safety of procedure Pathology: Cervix, uterus, fallopian tubes, and ovaries sent to pathology Fluid Replacement, Intraop: 1,500 Output, Urine Amount: 150 EBL in mLs: 150 Complications: None Condition: Good Free Text/Narrative:: The risks, benefits, indications, potential complications, and alternatives were explained to the patient and informed consent obtained. The patient was taken to the Operating Room where general anesthesia was induced without complication. The patient was placed in dorsal lithotomy with Keenan Stirrups and an exam under anesthesia revealed the findings detailed above. The patient was then prepped and draped in the usual sterile fashion. A sterile bivalve speculum was placed into the vagina and the anterior lip of the cervix was grasped with a single tooth tenaculum and a Jibo uterine manipulator was placed to allow uterine manipulation throughout the procedure. The speculum and single tooth tenaculum were removed from the vagina. A Muhammad catheter was placed in sterile fashion. Attention was then turned to the patients abdomen where a Veress needle was carefully introduced into the peritoneal cavity while tenting the abdominal wall. Intraperitoneal placement was confirmed by free flow of saline into the abdomen from a syringe open to gravity and with a low intraabdominal pressure with insufflation of C02 gas on low flow. The gas was increased to high flow and a pneumoperitoneum was obtained with C02 gas to a pressure of 15 mm Hg. A 5 mm skin incision was made in a vertical fashion in the umbilical fold and a 5 mm blunt trocar was inserted into the abdomen with direct visualization of the laparoscope through the clear view trocar lens. 5 mm skin incisions were made in both the left and right lower quadrants approximately 10 cm lateral and 3 cm inferior to the umbilicus. 5 mm blunt trocars were inserted into the abdomen under direct visualization with care to avoid the abdominal wall vasculature. A blunt probe and grasper were inserted through the accessory ports and a survey of the abdomen revealed the findings detailed above. The LigaSure was used to grasp, elevate, cauterize, and transect the right infundibulopelvic ligament. The LigaSure was then used to cauterize and transect along the fallopian tube to the level of the round ligament. The round ligament on the right was then elevated, cauterized, and transected with the LigaSure. Hemostasis was noted. Next, the vesicouterine peritoneum was elevated gently with a blunt grasper and the LigaSure and blunt dissection were used dissect the vesicouterine peritoneum to make a bladder flap. Two more small bites along the right side of the uterus were made with the LigaSure to skeletonize the uterine artery. Hemostasis was noted. The exact same procedure was carried out on the left . The CO2 gas was turned off and the laparoscope was removed. Attention was then turned to the vaginal portion of the procedure. A short weighted speculum was placed in the vagina, and the cervix was grasped with a do uble-toothed tenaculum. The cervix was injected circumferentially with 10 mL1% lidocaine with dilute epinephrine. The cervix was then circumferentially incised with a scalpel. A Raytec was used to bluntly dissect the cervix circumferentially until an avascular plane was obtained. The posterior cul-de-sac was entered sharply without difficulty. A 0-Vicryl pop-off suture was placed at six o'clock to include the posterior vaginal mucosa and posterior peritoneum. This stitch was tagged with a straight clamp to help with vaginal cuff closure at the end of the case. The short weighted speculum was replaced by the long weighted speculum. The uterosacral ligaments were grasped on either side with the LigaSure, cauterized, and transected. The bladder was dissected off the pubovesical cervical fascia anteriorly with a sponge and blunt dissection. The anterior cul-de-sac was then entered sharply without difficulty. The cardinal ligaments were then serially clamped on both sides with the LigaSure, cauterized, and transected. The uterine arteries were then clamped with the LigaSure, cauterized, and transected. The fundus and adnexa were confirmed to be free of any further peritoneal attachments and then were pulled out through the vagina. The posterior vaginal peritoneum was closed with a running, locked suture of 0 Vicryl. The vaginal cuff was closed with two separate sutures of 0-Vicryl started at either apex and run towards the midline in a running locked fashion. Hemostasis was noted. Attention was then again turned to the abdomen. All members of the surgical team changed gloves. The laparoscope was again inserted and the abdomen was again insufflated with CO2. The pedicles were again visualized. Anshu seal was placed along the vaginal cuff. Hemostasis was confirmed. The patient was taken out of Trendelenberg position. The accessory trocars were removed under direct visualization. The pneumoperitoneum was allowed to escape. The umbilical trocar was removed and lastly the camera was removed from the abdomen under direct visualization to confirm no herniation into the port site. All skin incisions were re-approximated with 4-0 Monocryl and sealed with Dermabond. Hemostasis was noted. A total of 8 cc of 0.25% Marcaine was injected into the subcutaneous tissues surrounding the skin incisions for local anesthesia. All sponge, lap, needle, and instrument counts were correct x 2. The patient tolerated the procedure well and there were no complications.
[2021-06-07] MEDS ORDERED: Lactated Ringers 1,000 ML ONE ×2 (07:35→09:27)
[2021-06-07] MEDS ORDERED: Dexamethasone 4 MG/ML 5 ML MDV ONE (07:35)
[2021-06-07] MEDS ORDERED: Rocuronium 50 MG/5 ML Vial ONE ×2 (07:35→08:53)
[2021-06-07] MEDS ORDERED: Ketorolac 30 MG/ML SDV ONE (07:35)
[2021-06-07] MEDS ORDERED: Ondansetron 4 MG/2 ML SDV ONE (07:35)
[2021-06-07] MEDS ORDERED: ceFAZolin 1 GM Vial ONE (07:35)
[2021-06-07] MEDS ORDERED: HYDROmorphone 0.5 MG/0.5 ML Syringe ONE ×2 (07:36→09:10)
[2021-06-07] MEDS ORDERED: fentaNYL 250 MCG/5 ML SDV ONE (07:36)
[2021-06-07] MEDS ORDERED: Midazolam 1 MG/ML 2 ML SDV ONE (07:36)
[2021-06-07] MEDS ORDERED: Propofol 200 MG/20 ML SDV ONE (07:36)
[2021-06-07] MEDS ORDERED: ePHEDrine 50 MG/ML SDV ONE (08:14)
[2021-06-07] MEDS ORDERED: Albuterol 0.083% 2.5 MG/3 ML Neb Soln NEB PRN (08:28)
[2021-06-07] MEDS ORDERED: Ondansetron 4 MG/2 ML SDV IVPUSH PRN (08:28)
[2021-06-07] MEDS ORDERED: HYDROmorphone 0.5 MG/0.5 ML Syringe IVPUSH PRN (08:28)
[2021-06-07] MEDS ORDERED: Midazolam 1 MG/ML 2 ML SDV IVPUSH PRN (08:28)
[2021-06-07] MEDS ORDERED: fentaNYL 100 MCG/2 ML SDV IVPUSH PRN (08:28)
[2021-06-07] MEDS ORDERED: ePHEDrine 50 MG/ML SDV IVPUSH PRN (08:28)
[2021-06-07] MEDS ORDERED: diphenhydrAMINE 50 MG/ML SDV IVPUSH PRN (08:28)
--- NOTE | 2021-06-07 10:02 | PCM.POSTAN ---
POST ANESTHESIA ASSESSMENT - MENTAL STATUS Mental Status: Alert - VITAL SIGNS Vital Signs: Last Vital Signs Temp 98.1 06/07/21952 Pulse 77 06/07/21 0953 Resp 14 06/07/21952 BP 105/57 06/07/21952 Pulse Ox 97% 06/07/21952 - RESPIRATORY Respiratory Status: Respiratory Rate WNL, Airway Patent, O2 Saturation Stable, Supplemental Oxygen - CARDIOVASCULAR CV Status: Pulse Rate WNL, Blood Pressure Stable - GASTROINTESTINAL GI Status: No Symptoms - POST OP HYDRATION Hydration Status: Adequate & Stable
[2021-06-07] MEDS ORDERED: Acetaminophen/oxyCODONE 325-5 MG Tab PO PRN (10:28)
[2021-06-07] MEDS: Bupivacaine 0.5% 30 ML SDV ONE ×2 (11:08→11:09)
--- NOTE | 2021-06-07 11:55 | PCM48HPAN ---
Post Anesthesia Note - EVALUATION WITHIN 48HRS OF ANESTHETIC Vital Signs in Normal Range: Yes Patient Participated in Evaluation: Yes Respiratory Function Stable: Yes Airway Patent: Yes Cardiovascular Function Stable: Yes Hydration Status Stable: Yes Pain Control Satisfactory: Yes Nausea and Vomiting Control Satisfactory: Yes Mental Status Recovered: Yes Vital Signs: Last Vital Signs Temp 36.7 C 06/07/21 11:38 Pulse 77 06/07/21 11:38 Resp 18 06/07/21 11:38 BP 119/63 06/07/21 11:38 Pulse Ox 98 06/07/21 11:38
[2021-06-07] MEDS ORDERED: Acetaminophen/oxyCODONE 325-5 MG Tab PO ONE (12:00)
== END 2021-06-07 13:42 | disposition home or self-care (01) ==
LOC: JD.SDS 06:59
PROVIDERS: ATTEND Obstetrics & Gynecology
DX: N80.0 Endometriosis of uterus (principal); N83.8 Other noninflammatory disorders of ovary, fallopian tube and broad ligament; N83.292 Other ovarian cyst, left side; N83.291 Other ovarian cyst, right side; K21.9 Gastro-esophageal reflux disease without esophagitis; Z15.01 Genetic susceptibility to malignant neoplasm of breast; Z98.890 Other specified postprocedural states; Z87.891 Personal history of nicotine dependence; Z88.1 Allergy status to other antibiotic agents; Z20.822 Contact with and (suspected) exposure to COVID-19
CPT/HCPCS: 00944; 36415; 80048; 85025; 86850; 86900; 86901; A9270-GY; J0690; J1100; J1170; J1885; J2250; J2370; J2405; J2704; J2710; J3010; J3490; J7120